=== PATIENT | male | born 1990 | race African-American/Black ===

== ENCOUNTER 2019-11-03 12:54 | Emergency (ER) | payer OTHER ==
[~2019-11-03] VITALS: Ht 195.6 cm; Wt 74.8 kg
[2019-11-03] MEDS ORDERED: MOBIC15 MG PO (14:11)
[2019-11-03 14:23] VITALS: BP 115/71
--- NOTE | 2019-11-03 16:49 | EKG ---
[facility] [place] [address] ELECTROCARDIOGRAM REPORT Name: BLAYNE SHANKAR Room #: DEP [facility].#: [id number] Admission: 11/03/19 Attend Phys: Discharge: 11/03/19 Date of : [birth year] Report #: [id number] THIS REPORT FOR: cc: ANAMIKA - Francia family physician/PCP ANAMIKA - Francia family physician/PCP Darron Live MD [facility] THIS REPORT FOR: //name// [facility] ED Test Date: 2019-11-03 Test Time: 13:43:09 Pat Name: BLAYNE SHANKAR Department: Room: Gender: Nurse Special: [facility] : 1990 Requested By: Pilar Ventura Order Number: [id number] MD: Darron Live Measurements Intervals [place] Rate: 71 P: 34 VA: 168 QRS: 71 QRSD: 87 T: 66 QT: 379 QTc: 412 Interpretive Statements Sinus rhythm RSR' in V1 or V2, probably normal variant Early repolarization No previous ECG available for comparison Electronically Signed On 11-03-2019 16:48:37 CDT by Darron Live [email or web address] <ELECTRONICALLY SIGNED> By: Darron Live MD, FACC 11/03/19 1648 [id number] Darron Live MD, [facility] /EPI
== END 2019-11-03 14:23 | disposition home or self-care (01) ==
LOC: ER 12:54
DX: R07.89 Other chest pain (principal)